=== PATIENT | male | born 1980 | race African-American/Black ===

== ENCOUNTER 2016-10-23 06:56 | Emergency (ER) | payer SELFPAY ==
[~2016-10-23] VITALS: Ht 177.8 cm; Wt 84.0 kg
[2016-10-23] MEDS ORDERED: LIDOCAINE HCL 1% 20ML VIAL (Pyxis) INJ INFIL ONE (08:45)
[2016-10-23 10:26] VITALS: BP 124/55
== END 2016-10-23 10:26 | disposition home or self-care (01) ==
LOC: ER 08:07
DX: L02.415 Cutaneous abscess of right lower limb (principal); L03.115 Cellulitis of right lower limb; F12.10 Cannabis abuse, uncomplicated
CPT/HCPCS: 10060; 99283; J3490; Z7610

== ENCOUNTER 2016-10-26 06:59 | Emergency (ER) | payer SELFPAY ==
[~2016-10-26] VITALS: Ht 177.8 cm; Wt 82.0 kg
[2016-10-26 08:30] VITALS: BP 105/72
== END 2016-10-26 08:40 | disposition home or self-care (01) ==
LOC: ER 07:52
DX: L02.415 Cutaneous abscess of right lower limb (principal); F12.10 Cannabis abuse, uncomplicated
CPT/HCPCS: 99283; Z7610